=== PATIENT | female | born 1995 | race African-American/Black ===

== ENCOUNTER 2023-10-02 00:58 | Emergency (ER) | payer MEDICAID ==
[~2023-10-02] VITALS: Ht 170.2 cm; Wt 150.0 kg
[2023-10-02 01:00] VITALS: BP 180/115; PULSE 91; RESP 15; TEMP 98.4; O2SAT 99
[2023-10-02 01:48] LABS: HCG SCREEN NEGATIVE
[2023-10-02 02:32] LABS: CLARITY URINE TURBID (CLEAR); COLOR URINE DARK YELLOW (YELLOW); GLUCOSE URINE NEGATIVE (NEGATIVE); KETONES URINE TRACE (NEGATIVE); LEUKOCYTE ESTERASE URINE 1+ (NEGATIVE); NITRITE URINE NEGATIVE (NEGATIVE); OCCULT BLOOD URINE NEGATIVE (NEGATIVE); PROTEIN URINE TRACE (NEGATIVE); SPECIFIC GRAVITY URINE 1.033 (1.005-1.030)
[2023-10-02] MEDS ORDERED: CYCL10TA21 MT (02:33)
[2023-10-02] MEDS ORDERED: NAPR-1176 MT (02:33)
[2023-10-02 02:39] LABS: *AMPHETAMINES SCREEN URINE PRESUMPTIVE POSITIVE (NEGATIVE); *BARBITURATES SCREEN URINE NEGATIVE (NEGATIVE); *BENZODIAZEPINES SCREEN URINE NEGATIVE (NEGATIVE); *COCAINE SCREEN URINE PRESUMPTIVE POSITIVE (NEGATIVE)
[2023-10-02 02:40] LABS: CANNABINOID URINE SCREEN NEGATIVE (NEGATIVE); ECSTASY MDMA SCREEN URINE CONF.TEST INDICATED (NEGATIVE); METHADONE URINE SCREEN NEGATIVE (NEGATIVE); OPIATES URINE SCREEN NEGATIVE (NEGATIVE); PHENCYCLIDINE URINE SCREEN NEGATIVE (NEGATIVE)
[2023-10-02 03:39] LABS: BACTERIA URINE 2+; RBC URINE NONE SEEN /hpf (0-2); SQUAMOUS EPITHELIAL CELL URINE 2+ /lpf (RARE/1+)
[2023-10-02] MEDS: HYDROCODONE/ACETAMINOPHEN 5/325MG TABLET PO ONE (07:26)
[2023-10-02] MEDS: KETOROLAC 30MG/ML VIAL IM ONE (07:27)
[2023-10-02] MEDS: KETOROLAC 30MG/ML VIAL IM SCH (08:10)
== END 2023-10-02 08:49 | disposition home or self-care (01) ==
LOC: ER 00:58
DX: M54.50 Low back pain, unspecified (principal); I10 Essential (primary) hypertension
CPT/HCPCS: 99285; 72128; 80305; 81003; 81025; 84703; 87086; 72131; 96372; J1885